=== PATIENT | female | born 1980 | race Hispanic/Latino ===

== ENCOUNTER 2020-01-16 05:35 | Emergency (ER) | payer SELFPAY ==
[2020-01-16] MEDS ORDERED: Famotidine 20 MG TAB ONE (05:50)
[2020-01-16] MEDS ORDERED: predniSONE 20 MG TAB ONE (05:50)
[2020-01-16] MEDS ORDERED: diphenhydrAMINE 25 MG CAP ONE (05:50)
== END 2020-01-16 06:42 | disposition home or self-care (01) ==
LOC: ERS 05:35
DX: L50.0 Allergic urticaria (principal)
CPT/HCPCS: 99282; J7512; Q0163